=== PATIENT | female | born 1955 | race Hispanic/Latino ===

== ENCOUNTER 2024-01-05 16:39 | Inpatient (IN) | payer MEDICARE ==
[~2024-01-05] VITALS: Ht 154.9 cm; Wt 93.0 kg
[2024-01-05] MEDS: DEXTROSE 50%-WATER 50 ML DISP.SYRIN IV ONE (18:09)
[2024-01-05] MEDS: LACTATED RINGERS 1000ML 1,000 ML IV ONE (21:24)
[2024-01-06] MEDS ORDERED: ONDANSETRON 4MG INJ IV PRN (02:00)
[2024-01-06] MEDS ORDERED: DEXTROSE 50%-WATER 50 ML DISP.SYRIN IV PRN (02:00)
[2024-01-06] MEDS ORDERED: GLUCAGON 1MG KIT 1 MG ML IM PRN (02:00)
[2024-01-06 02:16] LABS: CARBON DIOXIDE 27 mmol/L (21-32); CHLORIDE 95 mmol/L (101-111); CREATININE 1.7 mg/dL (0.5-1.5); GLOMERULAR FILTR. RATE CALC 32 mL/min (>90); GLUCOSE,RANDOM 104 mg/dL (70-105); POTASSIUM 5.6 mmol/L (3.5-5.1); SODIUM SERUM 126 mmol/L (136-145); UREA NITROGEN, BLOOD 26 mg/dL (7-18)
[2024-01-06 02:35] LABS: ALANINE AMINOTRANSFERASE 13 U/L (12-78); ALBUMIN 2.5 g/dL (3.5-5.0); ASPARTATE AMINOTRANSFERASE 18 U/L (10-37); BILIRUBIN,TOTAL 0.3 mg/dL (0.2-1.0); CHOLESTEROL 83 mg/dL (<200); HDL CHOLESTEROL 60 mg/dL (35-85); LDL DIRECT 31 mg/dL (0-99); THYROID STIMULATING HORMONE 1.64 uIU/mL (0.36-3.74); TRIGLYCERIDES < 15 mg/dL (30-200)
[2024-01-06 02:37] LABS: SODIUM,URINE RANDOM 22 mmol/l (40-220)
[2024-01-06 02:44] LABS: APPEARANCE,URINE CLEAR (CLEAR); BILIRUBIN,URINE NEGATIVE (NEGATIVE); COLOR,URINE LIGHT-YELLOW (YELLOW); GLUCOSE, URINE (UA) NEGATIVE (NEGATIVE); KETONES,URINE NEGATIVE (NEGATIVE); LEUKOCYTE ESTERASE ,URINE 250 Leu/uL (NEGATIVE); NITRATE,URINE 2+ (NEGATIVE); OCCULT BLOOD,URINE NEGATIVE (NEGATIVE); PH,URINE 5.5 (5.0-8.0); PROTEIN,URINE 30 mg/dL (NEGATIVE); UROBILINOGEN,URINE 0.2 mg/dL (0.2-1.0)
[2024-01-06] MEDS: FUROSEMIDE 20MG VIAL IV ONE (02:52)
[2024-01-06 02:57] LABS: ADD UA MICROSCOPIC YES
[2024-01-06] MEDS: 0.9%NACL 1000ML 1,000 ML IV SCH (03:03)
[2024-01-06 03:08] LABS: MUCUS,URINE RARE LPF (None Seen); SQUAMOUS EPITHELIAL CELL,UR FEW /HPF (0-2)
[2024-01-06 03:09] LABS: BACTERIA,URINE Few /HPF (None Seen)
[2024-01-06 04:30] VITALS: O2SAT 98
[2024-01-06 07:35] LABS: HEMATOCRIT 25.9 % (36-48)
[2024-01-06 07:51] VITALS: BP 137/67; PULSE 78; RESP 19
[2024-01-06 08:16] LABS: % IRON SATURATION 16.8 % (22-44)
[2024-01-06] MEDS: FAMOTIDINE 20MG TAB PO SCH (08:35)
[2024-01-06 08:45] VITALS: O2SAT 95
[2024-01-06] MEDS ORDERED: POTASSIUM CHLORIDE 20MEQ/100ML 100 ML IV PRN (09:00)
[2024-01-06] MEDS: CEFTRIAXONE 1G VIAL IVPB SCH (09:11)
[2024-01-06 11:15] VITALS: BP 142/58; PULSE 75; RESP 19
[2024-01-06] MEDS: Vitamin B Complex/Vit C/Folic Acid PO SCH (14:47)
[2024-01-06] MEDS: ACETAMINOPHEN 325 MG TAB PO PRN (15:05)
[2024-01-06 15:33] VITALS: BP 145/53; PULSE 87; RESP 18
[2024-01-06 20:00] VITALS: BP_SYST 112; BP_SYST 144; BP_DIAS 42; BP_DIAS 69; PULSE 79; PULSE 87; RESP 18; RESP 20; O2SAT 98
[2024-01-06] MEDS ORDERED: SPIR25TA6 PO ×2 (22:36)
[2024-01-06] MEDS ORDERED: MELO-106 PO ×2 (22:36)
[2024-01-06] MEDS ORDERED: SIMV-43 PO ×2 (22:38)
[2024-01-06] MEDS ORDERED: CETI10TA57 PO ×2 (22:40)
[2024-01-06] MEDS ORDERED: LOSA25TA41 PO ×2 (22:40)
[2024-01-06] MEDS ORDERED: MONT-39 PO ×2 (22:41)
[2024-01-06] MEDS ORDERED: AMIO200T68 PO ×2 (22:41)
[2024-01-06] MEDS ORDERED: PREG50CA64 PO ×2 (22:44)
[2024-01-06] MEDS ORDERED: RIVA20TA PO ×2 (22:44)
[2024-01-06] MEDS ORDERED: FERS325 PO ×2 (22:44)
[2024-01-06] MEDS ORDERED: PANT40TA54 PO ×2 (22:47)
[2024-01-06] MEDS ORDERED: METO-391 PO ×2 (22:47)
[2024-01-06] MEDS ORDERED: FLUT16H EN ×2 (22:47)
[2024-01-06] MEDS ORDERED: METF-444 PO ×2 (22:47)
[2024-01-06] MEDS ORDERED: DILT-36 PO ×2 (22:50)
[2024-01-06] MEDS ORDERED: FURO20TA4 PO ×2 (22:50)
[2024-01-06] MEDS ORDERED: LATA2.5D14 OU ×2 (22:50)
[2024-01-06] MEDS ORDERED: SENN8.6T20 PO ×2 (22:52)
[2024-01-06] MEDS ORDERED: vit D PO ×2 (22:54)
[2024-01-06] MEDS ORDERED: ZINC50TA64 PO ×2 (22:54)
[2024-01-06] MEDS ORDERED: CALCIUM CITRATE PO ×2 (23:04)
[2024-01-06] MEDS ORDERED: ACET-2893 PO ×2 (23:04)
[2024-01-06] MEDS ORDERED: BUDE10.2 IH ×2 (23:10)
[2024-01-06] MEDS ORDERED: ALBU18HF7 IH ×2 (23:10)
[2024-01-06] MEDS ORDERED: EXEN10PE3 SQ ×2 (23:10)
[2024-01-06] MEDS ORDERED: INSU3INS5 SQ ×2 (23:12)
[2024-01-07] VITALS (10 sets, daily range): BP systolic 117–166; BP diastolic 38–69; PULSE 85–104; RESP 17–20; O2SAT 98–100
[2024-01-07 01:22] LABS: CHLORIDE,URINE RANDOM 26 mmol/L (110-250); CREATININE,URINE RANDOM 22 mg/dL (30-135); POTASSIUM,URINE RANDOM 15 mmol/L (25-125)
[2024-01-07 05:04] LABS: HEMATOCRIT 26.5 % (36-48); MEAN CORPUSCULAR HEMOGLOBIN 32.9 pg (27.0-33.0); MEAN CORPUSCULAR HGB CONC 30.9 g/dL (32.0-36.0); MEAN CORPUSCULAR VOLUME 106.4 fL (79-99); RED BLOOD CELL COUNT(AUTO) 2.49 MIL/uL (4.00-5.50); RED CELL DISTRIBUTION WIDTH 18.9 % (11.0-15.5); WHITE BLOOD COUNT (AUTO) 11.7 K/uL (4.8-10.8)
[2024-01-07 05:40] LABS: ALBUMIN 2.5 g/dL (3.5-5.0); BILIRUBIN,TOTAL 0.3 mg/dL (0.2-1.0); CREATININE 1.2 mg/dL (0.5-1.5); MAGNESIUM 1.6 mg/dL (1.80-2.40); PHOSPHORUS 3.3 mg/dL (2.5-4.9); POTASSIUM 5.4 mmol/L (3.5-5.1); TOTAL PROTEIN, SERUM 5.3 g/dL (6.0-8.3); URIC ACID 7.4 mg/dL (2.6-7.2)
[2024-01-07] MEDS ORDERED: ALBUTEROL 0.083% 2.5 MG/3 ML INH IH PRN (13:30)
[2024-01-07] MEDS ORDERED: IRON SUCROSE COMPLEX 100 MG/5 ML VIAL IVP SCH (14:00)
[2024-01-07] MEDS: PREGABALIN 25 MG CAP PO SCH (14:09)
[2024-01-07] MEDS: IRON SUCROSE COMPLEX 300 MG+/NS 250ML IV SCH (14:22)
[2024-01-07] MEDS ORDERED: COMPOUND IV MISC 1 EACH IVSOLN MISC PRN (14:30)
[2024-01-07] MEDS: ALBUTEROL 0.083% 2.5 MG/3 ML INH IH SCH (19:19)
[2024-01-07] MEDS: BUDESONIDE 0.5 MG/2 ML INH IH SCH (19:19)
[2024-01-07] MEDS: SYMBICORT 160-4.5 MCG INHALER IH SCH (21:00)
[2024-01-07] MEDS: METOPROLOL SUCCINATE 50 MG TAB.SR.24H PO SCH (21:00)
[2024-01-07] MEDS: SIMVASTATIN 20 MG TABLET PO SCH (21:09)
[2024-01-07] MEDS: LATANOPROST 2.5 ML DROPS OU SCH (21:55)
[2024-01-08] VITALS (16 sets, daily range): BP systolic 98–135; BP diastolic 41–77; PULSE 79–93; RESP 17–18; O2SAT 97–100
[2024-01-08 05:16] LABS: BASOPHILS # (AUTO) 0.04 K/uL (0.00-0.20); BASOPHILS % (AUTO) 0.4 % (0.0-5.0); EOSINOPHILS # (AUTO) 0.33 K/uL (0.00-0.70); EOSINOPHILS % (AUTO) 3.3 % (0.0-8.0); HEMATOCRIT 26.6 % (36-48); IMMATURE GRANULOCYTE ABSOLUTE 0.04 K/uL (0-1); LYMPHOCYTES # (AUTO) 1.1 K/uL (1.0-4.8); LYMPHOCYTES % (AUTO) 10.8 % (21.0-51.0); MEAN CORPUSCULAR HEMOGLOBIN 32.7 pg (27.0-33.0); MEAN CORPUSCULAR HGB CONC 31.2 g/dL (32.0-36.0); MEAN CORPUSCULAR VOLUME 104.7 fL (79-99); MONOCYTES % (AUTO) 9.8 % (3.0-13.0); NEUTROPHILS # (AUTO) 7.6 K/uL (1.8-7.7); NEUTROPHILS % (AUTO) 75.3 % (40.0-77.0); NUCLEATED RED BLOOD CELLS 0.2 % (0.0-0.19); PLATELET COUNT (AUTO) 274 K/uL (130-400); RED BLOOD CELL COUNT(AUTO) 2.54 MIL/uL (4.00-5.50); RED CELL DISTRIBUTION WIDTH 18.1 % (11.0-15.5); WHITE BLOOD COUNT (AUTO) 10.1 K/uL (4.8-10.8)
[2024-01-08 05:36] LABS: ALBUMIN 2.4 g/dL (3.5-5.0); BILIRUBIN,TOTAL 0.3 mg/dL (0.2-1.0); CREATININE 1.2 mg/dL (0.5-1.5); MAGNESIUM 1.5 mg/dL (1.80-2.40); POTASSIUM 4.8 mmol/L (3.5-5.1); TOTAL PROTEIN, SERUM 5.4 g/dL (6.0-8.3)
[2024-01-08] MEDS: FERROUS SULFATE 325 MG TABLET.DR PO SCH (09:00)
[2024-01-08] MEDS: VIT D 50 MCG PO SCH (09:00)
[2024-01-08] MEDS: (Zinc Amino Acid Chelate (Zinc) 50 MG) PO SCH (09:00)
[2024-01-08] MEDS: CALCIUM CITRATE PO SCH (09:00)
[2024-01-08] MEDS: SENNOSIDES 8.6 MG TABLET PO SCH (09:26)
[2024-01-08] MEDS: RIVAROXABAN 20 MG TABLET PO SCH (09:27)
[2024-01-08] MEDS: AMIODARONE 200 MG TABLET PO SCH (09:27)
[2024-01-08] MEDS: MONTELUKAST SODIUM 10 MG TAB PO SCH (09:27)
[2024-01-08] MEDS: DILTIAZEM 120MG SR CAP PO SCH (09:27)
[2024-01-08] MEDS: CETIRIZINE HCL 5 MG TABLET PO SCH (09:29)
[2024-01-08] MEDS: MAGNESIUM 2GM PREMIX 50ML 50 ML IV PRN (10:40)
[2024-01-09] VITALS (9 sets, daily range): BP systolic 120–136; BP diastolic 33–109; PULSE 71–86; RESP 18–20; O2SAT 95–99
[2024-01-09 15:14] LABS: IGA (IFE) 105 mg/dL (87-352); IGG (IMMUNOFIXATION) 525 mg/dL (586-1602); IGM (IMMUNOFIXATION) 28 mg/dL (26-217)
[2024-01-09] MEDS ORDERED: FERROUS SULFATE 325 MG TABLET.DR PO SCH (21:00)
[2024-01-09] MEDS ORDERED: METOPROLOL SUCCINATE 50 MG TAB.SR.24H PO SCH (21:00)
== END 2024-01-09 16:15 | disposition home or self-care (01) | DRG 682 ==
LOC: EDH 16:39 → EDHIP 01-06 01:57 → 4CH 01-06 03:07
PROVIDERS: ADMIT Internal Medicine; ATTEND Internal Medicine
PROC: 30233N1 Transfusion of Nonautologous Red Blood Cells into Peripheral Vein, Percutaneous Approach (ICD-10-PCS; principal; 2024-01-05)
DX: N17.9 Acute kidney failure, unspecified (principal); E43 Unspecified severe protein-calorie malnutrition; D68.69 Other thrombophilia; E87.1 Hypo-osmolality and hyponatremia; D64.9 Anemia, unspecified; N13.6 Pyonephrosis; I48.91 Unspecified atrial fibrillation; E87.5 Hyperkalemia; N18.9 Chronic kidney disease, unspecified; E11.22 Type 2 diabetes mellitus with diabetic chronic kidney disease; E11.649 Type 2 diabetes mellitus with hypoglycemia without coma; B96.20 Unspecified Escherichia coli [E. coli] as the cause of diseases classified elsewhere; E78.00 Pure hypercholesterolemia, unspecified; E87.6 Hypokalemia; F17.210 Nicotine dependence, cigarettes, uncomplicated; Z60.2 Problems related to living alone; H54.3 Unqualified visual loss, both eyes; H91.93 Unspecified hearing loss, bilateral; I12.9 Hypertensive chronic kidney disease with stage 1 through stage 4 chronic kidney disease, or unspecified chronic kidney disease; J44.89 Other specified chronic obstructive pulmonary disease; Z79.01 Long term (current) use of anticoagulants; Z85.3 Personal history of malignant neoplasm of breast; Z90.12 Acquired absence of left breast and nipple; I95.9 Hypotension, unspecified; Z90.49 Acquired absence of other specified parts of digestive tract; Z88.1 Allergy status to other antibiotic agents; Z91.048 Other nonmedicinal substance allergy status; Z68.38 Body mass index [BMI] 38.0-38.9, adult
CPT/HCPCS: 36415; 76770; 80051; 80053; 80061; 81001; 82270; 82533; 82570; 82607; 82728; 82746; 82948; 83036; 83540; 83550; 83735; 83930; 83935; 84100; 84300; 84443; 84550; 85014; 85018; 85025; 85027; 86334; 86850; 86900; 86901; 86923; 87077; 87088; 87186; 94640; 94664; G0378; J0696; J1756; J1940; J3475; J7050; J7070; P9016

== ENCOUNTER → 2024-01-05 | Outpatient (CLI) | payer MEDICARE ==
[~2024-01-05] VITALS: Ht 154.9 cm; Wt 93.4 kg
[~2024-01-05] MED LIST: ACET-2893 PO; ALBU18HF7 IH; AMIO200T68 PO; BUDE10.2 IH; CALCIUM CITRATE PO; CETI10TA57 PO; DILT-36 PO; EXEN10PE3 SQ; FERS325 PO; FLUT16H EN; FURO20TA4 PO; INSU3INS5 SQ; LATA2.5D14 OU; LOSA25TA41 PO; MELO-106 PO; METF-444 PO; METO-391 PO; MONT-39 PO; PANT40TA54 PO; PREG50CA64 PO; RIVA20TA PO; SENN8.6T20 PO; SIMV-43 PO; SPIR25TA6 PO; ZINC50TA64 PO; vit D PO
[2024-01-05 15:16] LABS: BASOPHILS # (AUTO) 0.03 K/uL (0.00-0.20); BASOPHILS % (AUTO) 0.3 % (0.0-5.0); EOSINOPHILS # (AUTO) 0.18 K/uL (0.00-0.70); EOSINOPHILS % (AUTO) 1.8 % (0.0-8.0); HEMATOCRIT 21.4 % (36-48); IMMATURE GRANULOCYTE ABSOLUTE 0.04 K/uL (0-1); LYMPHOCYTES # (AUTO) 1.2 K/uL (1.0-4.8); LYMPHOCYTES % (AUTO) 11.7 % (21.0-51.0); MEAN CORPUSCULAR HEMOGLOBIN 34.2 pg (27.0-33.0); MEAN CORPUSCULAR HGB CONC 31.3 g/dL (32.0-36.0); MEAN CORPUSCULAR VOLUME 109.2 fL (79-99); MONOCYTES # (AUTO) 0.8 K/uL (0.1-1.0); MONOCYTES % (AUTO) 8.2 % (3.0-13.0); NEUTROPHILS % (AUTO) 77.6 % (40.0-77.0); PLATELET COUNT (AUTO) 312 K/uL (130-400); RED BLOOD CELL COUNT(AUTO) 1.96 MIL/uL (4.00-5.50); RED CELL DISTRIBUTION WIDTH 14.6 % (11.0-15.5); WHITE BLOOD COUNT (AUTO) 10.3 K/uL (4.8-10.8)
[2024-01-05 15:30] VITALS: BP 125/53; PULSE 70; RESP 19
[2024-01-05 15:33] LABS: INR 1.25 (0.85-1.15); PROTHROMBIN TIME 14.3 SEC (9.6-11.6)
[2024-01-05 15:35] LABS: PARTIAL THROMBOPLASTIN TIME 53.9 SEC (26.3-35.5)
[2024-01-05 15:46] LABS: CREATININE 1.5 mg/dL (0.5-1.5)
[2024-01-05 15:52] LABS: POTASSIUM 6.3 mmol/L (3.5-5.1)
== END | disposition home or self-care (01) ==
LOC: DAH 10:00 → EDSTATUS 11:00
PROVIDERS: ATTEND Internal Medicine Cardiovascular Disease
DX: I48.0 Paroxysmal atrial fibrillation (principal)
CPT/HCPCS: 36415; 80048; 82948; 85025; 85610; 85730; 93005